=== PATIENT | female | born 1965 | race Caucasian/White ===

== ENCOUNTER 2022-03-11 10:01 | Outpatient (CLI) | payer OTHER | END 2022-03-11 10:05 | disposition home or self-care (01) | LOC: NUCLEAR 10:01 | DX: I70.213 Atherosclerosis of native arteries of extremities with intermittent claudication, bilateral legs (principal); M79.606 Pain in leg, unspecified; R23.9 Unspecified skin changes; I10 Essential (primary) hypertension ==

== ENCOUNTER 2022-03-12 08:01 | Outpatient (CLI) | payer OTHER | END 2022-03-12 08:08 | disposition home or self-care (01) | LOC: MAMO-SONO 08:01 | DX: Z12.31 Encounter for screening mammogram for malignant neoplasm of breast (principal); N64.4 Mastodynia ==